=== PATIENT | female | born 2000 | race Caucasian/White ===

== ENCOUNTER 2022-01-14 06:49 | Emergency (ER) | payer OTHER ==
[2022-01-14 07:09] LABS: MUDS CUTOFF CONCENTRATIONS CUTOFF CONC BELOW:
[2022-01-14 07:16] LABS: HCG UR QUAL NEGATIVE
[2022-01-14 07:24] LABS: AMPHETAMINE SCREEN,URINE NEGATIVE (NEGATIVE); BARBITURATE SCREEN,UR NEGATIVE (NEGATIVE); BENZODIAZEPINES SCREEN, URINE NEGATIVE (NEGATIVE); COCAINE SCREEN URINE NEGATIVE (NEGATIVE); METHADONE SCREEN, URINE NEGATIVE (NEGATIVE); METHAMPHETAMINES SCREEN, URINE NEGATIVE (NEGATIVE); OPIATE SCREEN, URINE NEGATIVE (NEGATIVE); OXYCODONE SCREEN, URINE NEGATIVE (NEGATIVE); PROPOXYPHENE SCREEN, URINE NEGATIVE (NEGATIVE); THC CANNABINOID SCREEN, URINE NEGATIVE (NEGATIVE); TRICYCLIC ANTIDEPRESSANT,URINE NEGATIVE (NEGATIVE)
[2022-01-14 07:29] LABS: BILIRUBIN,URINE NEGATIVE (NEGATIVE); GLUCOSE, URINE (UA) NEGATIVE (NEGATIVE); KETONES,URINE (UA) NEGATIVE (NEGATIVE); LEUKOCYTE ESTERASE, URINE NEGATIVE (NEGATIVE); NITRITE,URINE NEGATIVE (NEGATIVE); OCCULT BLOOD,URINE NEGATIVE (NEGATIVE); PROTEIN,URINE NEGATIVE (NEGATIVE); UROBILINOGEN,URINE 0.2 (NORMAL) E.U./dL (NORMAL)
[2022-01-14 07:30] LABS: CLARITY,URINE CLEAR (CLEAR)
[2022-01-14 07:39] LABS: BASOPHILS # (AUTO) 0.1 10^3/uL (0.0-0.1); BASOPHILS % (AUTO) 1.4 %; EOSINOPHILS # (AUTO) 0.2 10^3/uL (0.0-0.7); EOSINOPHILS % (AUTO) 2.7 %; HCT - HEMATOCRIT 45.1 % (37.0-47.0); HGB - HEMOGLOBIN 15.1 g/dL (12.0-16.0); LYMPHOCYTES # (AUTO) 2.1 10^3/uL (1.5-3.5); LYMPHOCYTES % (AUTO) 35.2 %; MEAN CORPUSCULAR HEMOGLOBIN 30.6 pg (27.0-31.0); MEAN CORPUSCULAR HGB CONC 33.5 g/dL (32.0-36.0); MEAN CORPUSCULAR VOLUME 91.5 fL (81.0-99.0); MEAN PLATELET VOLUME 10.2 fL (7.9-10.8); MONOCYTES # (AUTO) 0.7 10^3/uL (0.0-1.0); MONOCYTES % (AUTO) 12.3 %; NEUTROPHILS # (AUTO) 2.8 10^3/uL (1.5-6.6); NEUTROPHILS % (AUTO) 48.2 %; PLT - PLATELET COUNT 287 10^3/uL (130-450); RED BLOOD COUNT 4.93 10^6/uL (4.20-5.40); WHITE BLOOD COUNT 5.9 x10^3/uL (4.8-10.8)
--- NOTE | 2022-01-14 07:56 | ED Physician Documentation ---
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 Patient reports this has been ongoing for some time. She is currently on Zoloft.She has thoughts of crashing her car. She has been drinking and believes she has had half 1/5 last night.She reports a history of a suicide attempt while she was deployed in [place] where she drank alcohol and then tried to jump out of a window but was stopped by someone else. She reports being hospitalized in [place] for 1 week but denies that it was for psychiatric reasons and that it was for her alcohol use.She reports feeling worse last night and reached out to a friend at her command to bring her to the emergency department. She denies drug use.She denies any specific recent events worsening her symptoms. Review of Systems Constitutional: denies: Fever Cardiac: denies: Chest pain / pressure Respiratory: denies: Dyspnea GI: denies: Abdominal Pain, Vomiting : denies: Dysuria Musculoskeletal: denies: Back pain Neurologic: denies: Headache Psychiatric: reports: Depressed, Suicidal PD PAST MEDICAL HISTORY - Past Medical History Past Medical History: Yes Cardiovascular: None Respiratory: None Neuro: None Endocrine/Autoimmune: None GI: None PARKING LOT SIGNALER: None : None HEENT: None Psych: Depression Musculoskeletal: None Derm: None - Past Surgical History Past Surgical History: No - Present Medications Home Medications: Ambulatory Orders Medication Instructions Recorded Confirmed Sertraline [Zoloft] 50 mg PO DAILY 10/11/21 01/14/22 - Allergies Allergies/Adverse Reactions: Allergies Allergy/AdvReac Type Severity Reaction Status Date / Time No Known Drug Allergies Allergy Verified 01/14/22 07:06 - Social History Does the pt smoke?: No Smoking Status: Never smoker Does the pt drink ETOH?: No Does the pt have substance abuse?: No - Immunizations Immunizations are current?: Yes - POLST Patient has POLST: No PD ED PE NORMAL - General General: Alert and oriented X 3, No acute distress, Well developed/nourished - HEENT HEENT: Atraumatic, PERRL - Cardiac Cardiac: RRR, Strong equal pulses - Respiratory Respiratory: No respiratory distress, Clear bilaterally - Abdomen Abdomen: Soft, Non tender - Derm Derm: Warm and dry - Extremities Extremities: No edema - Neuro Neuro: Normal speech - Psych Psych: Other (Tearful, soft-spoken) Results - Vitals Vitals: Vital Signs - 24 hr 01/14/22 01/14/22 07:02 13:44 Temperature 37.4 C 37.3 C Heart Rate 112 H 109 H Respiratory 16 18 Rate Blood Pressure 135/78 H 117/65 O2 Saturation 98 100 Oxygen O2 Source Room air - Labs Labs: Laboratory Tests 01/14/22 01/14/22 01/14/22 07:00 07:00 07:00 WBC RBC Hgb Hct MCV MCH MCHC RDW Plt Count MPV Neut # (Auto) Lymph # (Auto) [place] # (Auto) Eos # (Auto) Baso # (Auto) Absolute Nucleated RBC Nucleated RBC % Sodium Potassium Chloride Carbon Dioxide Anion Gap BUN Creatinine Estimated GFR (MDRD) Glucose Calcium Total Bilirubin AST ALT Alkaline Phosphatase Total Protein Albumin Globulin Albumin/Globulin Ratio Lipase TSH Urine Color LT. YELLOW Urine Clarity CLEAR Urine pH 6.0 Ur Specific [place] <=1.005 Urine Protein NEGATIVE Urine Glucose (UA) NEGATIVE Urine Ketones NEGATIVE Urine Occult Blood NEGATIVE Urine Nitrite NEGATIVE Urine Bilirubin NEGATIVE Urine Urobilinogen 0.2 (NORMAL) Ur Leukocyte Esterase NEGATIVE Ur Microscopic Review NOT INDICATED Urine Culture Comments NOT INDICATED Urine HCG, Qual NEGATIVE Salicylates Urine Opiates Screen NEGATIVE Ur Oxycodone Screen NEGATIVE Urine Methadone Screen NEGATIVE Ur Propoxyphene Screen NEGATIVE Acetaminophen Ur Barbiturates Screen NEGATIVE Ur Tricyclics Screen NEGATIVE Ur Phencyclidine Scrn NEGATIVE Ur Amphetamine Screen NEGATIVE U Methamphetamines Scrn NEGATIVE U Benzodiazepines Scrn NEGATIVE Urine Cocaine Screen NEGATIVE U Cannabinoids Screen NEGATIVE Ethyl Alcohol SARS-CoV-2 (PCR) 01/14/22 01/14/22 01/14/22 07:34 07:34 07:34 WBC 5.9 RBC 4.93 Hgb 15.1 Hct 45.1 MCV 91.5 MCH 30.6 MCHC 33.5 RDW 12.0 Plt Count 287 MPV 10.2 Neut # (Auto) 2.8 Lymph # (Auto) 2.1 [place] # (Auto) 0.7 Eos # (Auto) 0.2 Baso # (Auto) 0.1 Absolute Nucleated RBC 0.00 Nucleated RBC % 0.0 Sodium 141 Potassium 3.9 Chloride 107 Carbon Dioxide 23 Anion Gap 11.0 BUN 8 Creatinine 0.5 Estimated GFR (MDRD) 154 Glucose 118 H Calcium 9.5 Total Bilirubin 0.5 AST 18 ALT 15 Alkaline Phosphatase 77 Total Protein 7.7 Albumin 4.4 Globulin 3.3 Albumin/Globulin Ratio 1.3 Lipase 26 TSH 3.03 Urine Color Urine Clarity Urine pH Ur Specific [place] Urine Protein Urine Glucose (UA) Urine Ketones Urine Occult Blood Urine Nitrite Urine Bilirubin Urine Urobilinogen Ur Leukocyte Esterase Ur Microscopic Review Urine Culture Comments Urine HCG, Qual Salicylates < 6.0 Urine Opiates Screen Ur Oxycodone Screen Urine Methadone Screen Ur Propoxyphene Screen Acetaminophen < 10 L Ur Barbiturates Screen Ur Tricyclics Screen Ur Phencyclidine Scrn Ur Amphetamine Screen U Methamphetamines Scrn U Benzodiazepines Scrn Urine Cocaine Screen U Cannabinoids Screen Ethyl Alcohol 252.2 SARS-CoV-2 (PCR) 01/14/22 01/14/22 08:30 14:59 WBC RBC Hgb Hct MCV MCH MCHC RDW Plt Count MPV Neut # (Auto) Lymph # (Auto) [place] # (Auto) Eos # (Auto) Baso # (Auto) Absolute Nucleated RBC Nucleated RBC % Sodium Potassium Chloride Carbon Dioxide Anion Gap BUN Creatinine Estimated GFR (MDRD) Glucose Calcium Total Bilirubin AST ALT Alkaline Phosphatase Total Protein Albumin Globulin Albumin/Globulin Ratio Lipase TSH Urine Color Urine Clarity Urine pH Ur Specific [place] Urine Protein Urine Glucose (UA) Urine Ketones Urine Occult Blood Urine Nitrite Urine Bilirubin Urine Urobilinogen Ur Leukocyte Esterase Ur Microscopic Review Urine Culture Comments Urine HCG, Qual Salicylates Urine Opiates Screen Ur Oxycodone Screen Urine Methadone Screen Ur Propoxyphene Screen Acetaminophen Ur Barbiturates Screen Ur Tricyclics Screen Ur Phencyclidine Scrn Ur Amphetamine Screen U Methamphetamines Scrn U Benzodiazepines Scrn Urine Cocaine Screen U Cannabinoids Screen Ethyl Alcohol 84.1 SARS-CoV-2 (PCR) DETECTED A PD MEDICAL DECISION MAKING - ED course Complexity details: reviewed results, re-evaluated patient, d/w patient ED course: Patient presenting for evaluation of suicidal thoughts with plan to crash her car. She is found to be intoxicated. She is also found to be positive for COVID. Reports having fevers and cough since Wednesday.Patient was allowed to metabolize And once sober still remained Feeling suicidal and depressed with having thoughts of harming herself.She was seen by social work and as she is active duty, [facility] has been contacted to evaluate her. Patient has been accepted to [facility]. As she is COVID-positive she will be transported by ambulance. Patient is aware of disposition. She did give me permission to speak to her flight surgeon, Dr. Black, when he called requesting information about her. Departure - Departure Disposition: 65 Psych Hosp/Unit DC/Xfer Clinical Impression: Suicidal thoughts, Alcohol intoxication, COVID-19 Condition: Stable
[2022-01-14 07:59] LABS: ACETAMINOPHEN < 10 ug/mL (10-30); ALBUMIN 4.4 g/dL (3.2-5.5); ALBUMIN/GLOBULIN RATIO 1.3 (1.0-2.2); ALKALINE PHOSPHATASE 77 IU/L (42-121); ALT ALANINE AMINOTRANSFERASE 15 IU/L (10-60); AST ASPARTATE AMINOTRANSFERASE 18 IU/L (10-42); BILIRUBIN,TOTAL 0.5 mg/dL (0.2-1.0); BUN - BLOOD UREA NITROGEN 8 mg/dL (6-20); CALCIUM 9.5 mg/dL (8.5-10.3); CARBON DIOXIDE - CO2 23 mmol/L (21-32); CHLORIDE 107 mmol/L (101-111); CREATININE 0.5 mg/dL (0.4-1.0); ETOH - ETHANOL 252.2 mg/dL; GFR - MDRD 154 (>89); GLUCOSE 118 mg/dL (70-100); LIPASE 26 U/L (22-51); POTASSIUM 3.9 mmol/L (3.5-5.0); SALICYLATE < 6.0 mg/dL; SODIUM 141 mmol/L (135-145); TOTAL PROTEIN 7.7 g/dL (6.7-8.2)
[2022-01-14 13:45] VITALS: BP 117/65
[2022-01-14] MEDS ORDERED: ACETAMINOPHEN 325 MG TABLET PO STA (18:12)
== END 2022-01-14 19:51 ==
LOC: ED 06:49
DX: F32.A Depression, unspecified (principal); U07.1 COVID-19; R45.851 Suicidal ideations; F10.129 Alcohol abuse with intoxication, unspecified; Z91.51 Personal history of suicidal behavior; Y90.8 Blood alcohol level of 240 mg/100 ml or more
CPT/HCPCS: 36415; 80053; 80306; 80307; 80320; 80329; 81003; 81025; 83690; 84443; 85025; 87635; 99283; 99285; A9270; 81001; 87086

== ENCOUNTER 2023-01-10 17:08 | Emergency (ER) | payer OTHER ==
[2023-01-10 17:53] LABS: BASOPHILS # (AUTO) 0.1 10^3/uL (0.0-0.1); EOSINOPHILS # (AUTO) 0.1 10^3/uL (0.0-0.7); EOSINOPHILS % (AUTO) 1.2 %; HCT - HEMATOCRIT 42.7 % (37.0-47.0); LYMPHOCYTES % (AUTO) 29.1 %; MEAN CORPUSCULAR HGB CONC 32.8 g/dL (32.0-36.0); MEAN CORPUSCULAR VOLUME 94.5 fL (81.0-99.0); MEAN PLATELET VOLUME 9.8 fL (7.9-10.8); MONOCYTES # (AUTO) 0.6 10^3/uL (0.0-1.0); MONOCYTES % (AUTO) 8.7 %; NEUTROPHILS # (AUTO) 4.1 10^3/uL (1.5-6.6); NEUTROPHILS % (AUTO) 59.7 %; PLT - PLATELET COUNT 362 10^3/uL (130-450); RED BLOOD COUNT 4.52 10^6/uL (4.20-5.40); RED CELL DISTRIBUTION WIDTH 12.5 % (12.0-15.0); WHITE BLOOD COUNT 6.9 x10^3/uL (4.8-10.8)
[2023-01-10 18:10] LABS: ACETAMINOPHEN 0.2 ug/mL; ALBUMIN 4.1 g/dL (3.2-5.5); ALBUMIN/GLOBULIN RATIO 1.4 (1.0-2.2); ALKALINE PHOSPHATASE 82 IU/L (42-121); ALT ALANINE AMINOTRANSFERASE 7 IU/L (10-60); AST ASPARTATE AMINOTRANSFERASE 13 IU/L (10-42); BILIRUBIN,TOTAL 0.7 mg/dL (0.2-1.0); BUN - BLOOD UREA NITROGEN 11 mg/dL (6-20); CALCIUM 8.8 mg/dL (8.5-10.3); CARBON DIOXIDE - CO2 27 mmol/L (21-32); CHLORIDE 109 mmol/L (101-111); CK- CREATINE KINASE 51 IU/L (30-223); CREATININE 0.6 mg/dL (0.6-1.3); GFR - MDRD 124 (>89); GLUCOSE 82 mg/dL (74-104); LIPASE 19 U/L (11-82); MAGNESIUM 1.6 mg/dL (1.7-2.3); POTASSIUM 3.4 mmol/L (3.5-4.5); SODIUM 143 mmol/L (135-145)
[2023-01-10 18:12] LABS: SALICYLATE < 1.5 mg/dL
--- NOTE | 2023-01-10 18:12 | ED Physician Documentation ---
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 She has a longstanding history of anxiety and depression and was previously on Prozac. She left for deployment in June and she stopped taking her Prozac in August. She returned from deployment on December 30. Since then she has been having thoughts of self-harm where she would [place]. She does not feel safe returning home and is requesting hospitalization for her thoughts. Patient states that she is planning to be discharged from the [facility] in June and stopped taking the Prozac because she was concerned about affording it when she was out of the [facility]. Patient had a similar presentation to this emergency department in January of last year at which time she was found to be clinically intoxicated with a blood alcohol of 255. Once she was sobered she was sent to [facility] again. Review of Systems Constitutional: denies: Fever Ears: reports: Reviewed and negative Cardiac: reports: Reviewed and negative Respiratory: reports: Reviewed and negative : reports: Reviewed and negative Psychiatric: reports: Depressed, Suicidal, Anxiety, Insomnia. denies: Homicidal, Hallucinations, Delusions PD PAST MEDICAL HISTORY - Past Medical History Past Medical History: Yes Cardiovascular: None Respiratory: None Neuro: None Endocrine/Autoimmune: None GI: None DIRECTOR HEMATOLOGY: None : None HEENT: None Psych: Depression, Anxiety, Panic attacks Musculoskeletal: None Derm: Psoriasis - Past Surgical History Past Surgical History: No - Present Medications Home Medications: Ambulatory Orders Medication Instructions Recorded Confirmed Fluoxetine HCl [Prozac] 80 mg PO DAILY 01/10/23 01/10/23 - Allergies Allergies/Adverse Reactions: Allergies Allergy/AdvReac Type Severity Reaction Status Date / Time No Known Drug Allergies Allergy Verified 01/10/23 17:22 - Social History Does the pt smoke?: No Smoking Status: Never smoker Does the pt drink ETOH?: No Does the pt have substance abuse?: No - Immunizations Immunizations are current?: Yes - POLST Patient has POLST: No PD ED PE NORMAL - General General: Alert and oriented X 3. No: No acute distress (Crying, anxious, tearful) - HEENT HEENT: PERRL - Cardiac Cardiac: RRR, No murmur - Respiratory Respiratory: Clear bilaterally - Neuro Neuro: Alert and oriented X 3, document manager 2-12 intact Eye Opening: Spontaneous Motor: Obeys Commands Verbal: Oriented GCS Score: 15 - Psych Psych: No: Normal mood (Depressed crying affect. Good eye contact. Reports thoughts of jumping [place]. Does not have a lot of forward thinking or future oriented thoughts) Results - Vitals Vitals: Vital Signs - 24 hr 01/10/23 17:23 Temperature 36.8 C Heart Rate 104 H Respiratory 16 Rate Blood Pressure 130/78 O2 Saturation 99 Oxygen O2 Source Room air - Labs Labs: Laboratory Tests 01/10/23 01/10/23 01/10/23 17:39 17:47 17:47 WBC 6.9 RBC 4.52 Hgb 14.0 Hct 42.7 MCV 94.5 MCH 31.0 MCHC 32.8 RDW 12.5 Plt Count 362 MPV 9.8 Neut # (Auto) 4.1 Lymph # (Auto) 2.0 [place] # (Auto) 0.6 Eos # (Auto) 0.1 Baso # (Auto) 0.1 Absolute Nucleated RBC 0.00 Nucleated RBC % 0.0 Sodium 143 Potassium 3.4 L Chloride 109 Carbon Dioxide 27 Anion Gap 7.0 BUN 11 Creatinine 0.6 Estimated GFR (MDRD) 124 Glucose 82 Calcium 8.8 Magnesium 1.6 L Total Bilirubin 0.7 AST 13 ALT 7 L Alkaline Phosphatase 82 Total Creatine Kinase 51 Total Protein 7.0 Albumin 4.1 Globulin 2.9 Albumin/Globulin Ratio 1.4 Lipase 19 TSH 0.86 Urine Color Urine Clarity Urine pH Ur Specific [place] Urine Protein Urine Glucose (UA) Urine Ketones Urine Occult Blood Urine Nitrite Urine Bilirubin Urine Urobilinogen Ur Leukocyte Esterase Urine RBC Urine WBC Ur Squamous Epith Cells Amorphous Sediment Urine Bacteria Urine Mucus Ur Microscopic Review Urine Culture Comments Urine HCG, Qual Salicylates < 1.5 Urine Opiates Screen Ur Oxycodone Screen Urine Methadone Screen Ur Propoxyphene Screen Acetaminophen 0.2 Ur Barbiturates Screen Ur Tricyclics Screen Ur Phencyclidine Scrn Ur Amphetamine Screen U Methamphetamines Scrn U Benzodiazepines Scrn Urine Cocaine Screen U Cannabinoids Screen Ethyl Alcohol 228.0 SARS-CoV-2 (PCR) NOT DETECTED 01/10/23 01/10/23 18:30 18:30 WBC RBC Hgb Hct MCV MCH MCHC RDW Plt Count MPV Neut # (Auto) Lymph # (Auto) [place] # (Auto) Eos # (Auto) Baso # (Auto) Absolute Nucleated RBC Nucleated RBC % Sodium Potassium Chloride Carbon Dioxide Anion Gap BUN Creatinine Estimated GFR (MDRD) Glucose Calcium Magnesium Total Bilirubin AST ALT Alkaline Phosphatase Total Creatine Kinase Total Protein Albumin Globulin Albumin/Globulin Ratio Lipase TSH Urine Color YELLOW Urine Clarity SL. CLOUDY Urine pH 6.0 Ur Specific [place] 1.025 Urine Protein NEGATIVE Urine Glucose (UA) NEGATIVE Urine Ketones TRACE Urine Occult Blood NEGATIVE Urine Nitrite NEGATIVE Urine Bilirubin NEGATIVE Urine Urobilinogen 1 (NORMAL) Ur Leukocyte Esterase LARGE H Urine RBC 0-5 Urine WBC 11-25 H Ur Squamous Epith Cells MANY Squamous H Amorphous Sediment Moderate Urine Bacteria Moderate H Urine Mucus Marked Strands Ur Microscopic Review INDICATED Urine Culture Comments NOT INDICATED Urine HCG, Qual NEGATIVE Salicylates Urine Opiates Screen NEGATIVE Ur Oxycodone Screen NEGATIVE Urine Methadone Screen NEGATIVE Ur Propoxyphene Screen NEGATIVE Acetaminophen Ur Barbiturates Screen NEGATIVE Ur Tricyclics Screen NEGATIVE Ur Phencyclidine Scrn NEGATIVE Ur Amphetamine Screen NEGATIVE U Methamphetamines Scrn NEGATIVE U Benzodiazepines Scrn NEGATIVE Urine Cocaine Screen NEGATIVE U Cannabinoids Screen NEGATIVE Ethyl Alcohol SARS-CoV-2 (PCR) PD Medical Decision Making - ED course Complexity details: reviewed results, re-evaluated patient, considered differential, d/w patient ED course: 22-year-old female presents to the emergency department for evaluation of suicidal ideation. She does not feel safe going home and is requesting hospitalization. Had a similar presentation in January of last year. Patient admits to drinking heavily last night as well as a little bit this morning. On presentation in the emergency department she was tearful and requesting hospitalization. Reported a plan to [place]. Routine mental health labs were obtained which included an alcohol level quite elevated at 228. Initially we did speak with [facility] again before the full labs had been obtained and she was excepted there for further evaluation and management of her SI and depression however they were requesting repeat alcohol to be less than 100 before they could formally excepted. As such the patient will continue to board in the emergency department with a repeat alcohol level pending for about 230 this morning. Once less than 100, patient should be reevaluated and if continues to have thoughts of SI she can continue with placement at [facility]. Urinalysis does suggest infection though patient is without symptoms. Therefore will defer treatment of asymptomatic bacteriuria. Patient will be signed out to my nighttime colleague to follow-up on alcohol results and reassessment Departure - Departure Clinical Impression: Suicidal ideation Alcohol intoxication Qualifiers: Complication of substance-induced condition: uncomplicated Qualified Code(s): F10.920 - Alcohol use, unspecified with intoxication, uncomplicated Forms: PCP List
[2023-01-10 18:22] LABS: THYROID STIMULATING HORMONE 0.86 uIU/mL (0.34-5.60)
[2023-01-10 18:51] LABS: MUDS CUTOFF CONCENTRATIONS CUTOFF CONC BELOW:
[2023-01-10 18:55] LABS: BILIRUBIN,URINE NEGATIVE (NEGATIVE); GLUCOSE, URINE (UA) NEGATIVE (NEGATIVE); KETONES,URINE (UA) TRACE mg/dL (NEGATIVE); LEUKOCYTE ESTERASE, URINE LARGE (NEGATIVE); NITRITE,URINE NEGATIVE (NEGATIVE); OCCULT BLOOD,URINE NEGATIVE (NEGATIVE); PROTEIN,URINE NEGATIVE (NEGATIVE); UROBILINOGEN,URINE 1 (NORMAL) E.U./dL (NORMAL)
[2023-01-10 19:01] LABS: AMORPHOUS SEDIMENT,UR Moderate /LPF; BACTERIA,URINE Moderate /HPF (None Seen); CLARITY,URINE SL. CLOUDY (CLEAR); HCG UR QUAL NEGATIVE; MUCUS,URINE Marked Strands; RBC,URINE 0-5 /HPF (0-5); SQUAMOUS EPITHELIAL CELL,UR MANY Squamous (<= Few)
[2023-01-10 19:03] LABS: AMPHETAMINE SCREEN,URINE NEGATIVE (NEGATIVE); BARBITURATE SCREEN,UR NEGATIVE (NEGATIVE); BENZODIAZEPINES SCREEN, URINE NEGATIVE (NEGATIVE); COCAINE SCREEN URINE NEGATIVE (NEGATIVE); METHADONE SCREEN, URINE NEGATIVE (NEGATIVE); METHAMPHETAMINES SCREEN, URINE NEGATIVE (NEGATIVE); OPIATE SCREEN, URINE NEGATIVE (NEGATIVE); OXYCODONE SCREEN, URINE NEGATIVE (NEGATIVE); PROPOXYPHENE SCREEN, URINE NEGATIVE (NEGATIVE); THC CANNABINOID SCREEN, URINE NEGATIVE (NEGATIVE); TRICYCLIC ANTIDEPRESSANT,URINE NEGATIVE (NEGATIVE)
--- NOTE | 2023-01-11 07:32 | ED Physician Documentation ---
ED Addendum - Addendum Addendum: 01/11/23 07:31 Patient signed out to me by overnight physician. Patient was found to be depressed, suicidal. Last night was wanting treatment but also found to have an elevated EtOH level. Was allowed to sober overnight. Patient is medically cleared. [facility] has tentatively accepted her although we are still waiting for a doctor to doctor phone call. This morning I went to evaluate the patient and she states she feels a little bit better and is unsure if she wants to get treatment. She states that if that is what we recommend and she would not argue with that but she also may prefer to be at home where her phone and bed are. She denies being concerned about alcohol use and states that she has not had a drink in 7 months. When I discussed her elevated level when she came in she states she is not sure why that was so high as she had not had a drink yesterday but had had alcohol the day prior.I have placed a social work consult To help in determining her disposition. 01/11/23 10:18 Social work has evaluated the patient. The patient is not wanting to be admitted to an inpatient facility at this time. She is contracted for safety. Please see social jeramy Mcfadden, evaluation for further details. Departure - Departure Disposition: 01 Home, Self Care Clinical Impression: Depression Alcohol intoxication Qualifiers: Complication of substance-induced condition: uncomplicated Qualified Code(s): F10.920 - Alcohol use, unspecified with intoxication, uncomplicated Condition: Stable Instructions: ED Alcohol Intoxication, ED Depression Follow-Up: [facility] [Provider Group] Prescriptions: LORazepam [Ativan] 1 mg PO TID PRN #6 tablet PRN Reason: Anxiety Comments: You were found to have an elevated level of alcohol in your system when you first presented to the emergency department. After allowing the alcohol to clear from your system we reevaluated you and at this time you are wanting to go home and feel that you will be safe at home. Please utilize the resources given to you by your command as well as by Lesa our 7th grade social studies teacher to help you through your current situation. Please follow-up with your primary care provider and mental health clinic at the [facility]. I have sent a small prescription for antianxiety medication to [facility] in [place]. Please use this sparingly and only as needed. Ab solutely do not mix this with alcohol. If at anytime you were feeling worse then please return to the emergency department or call 911. Suicide Hotline 986 Follow-up with [facility] at [phone] to schedule psychiatric care and counseling. Forms: PCP List
[2023-01-11] MEDS ORDERED: LORazepam 1 MG TABLET PO STA (09:02)
[2023-01-11 11:42] VITALS: BP 128/85; O2SAT 100
== END 2023-01-11 11:39 | disposition home or self-care (01) ==
LOC: ED 17:08
DX: R45.851 Suicidal ideations (principal); F10.129 Alcohol abuse with intoxication, unspecified; Y90.7 Blood alcohol level of 200-239 mg/100 ml; F41.9 Anxiety disorder, unspecified; F32.A Depression, unspecified; Z20.822 Contact with and (suspected) exposure to COVID-19; Z79.899 Other long term (current) drug therapy
CPT/HCPCS: 36415; 80053; 80306; 80307; 80320; 80329; 81001; 81025; 82550; 83690; 83735; 84443; 85025; 87635; 99283; J8499; 81003; 87086

== ENCOUNTER 2023-01-17 21:52 | Outpatient (CLI) | payer OTHER | END 2023-01-17 21:53 | disposition critical access hospital (66) | LOC: EMS 21:52 | DX: Z04.6 Encounter for general psychiatric examination, requested by authority (principal); R45.851 Suicidal ideations; F10.129 Alcohol abuse with intoxication, unspecified | CPT/HCPCS: A0425; A0429 ==

== ENCOUNTER 2023-01-17 22:11 | Emergency (ER) | payer OTHER ==
--- NOTE | 2023-01-17 22:45 | ED Physician Documentation ---
PD HPI MHE - Stated complaint Stated Complaint: MHE - Chief complaint Chief Complaint: MHE - History obtained from History obtained from: Patient, EMS - History of Present Illness Primary symptom: Suicidal ideation, Depression (ongoing depression and has had episodic suicidal ideation (had epidose a week ago when intoxicatd of ideation of going [place]). No attempts have been made. She called her friend this evening that she was wanting to hurt herself. Friend called command and police, who found pt at home.). No: Suicide attempt Timing - onset: Today Contributing factors: Off meds Similar symptoms before: Diagnosis (here in ER a week ago and year ago with similar presentation of suicidal ideation and intoxication.) Recently seen: Emergency Dept Review of Systems Unable to obtain: Intoxicated, Other (reluctant to talk but answered questions sluggishly with head nodding.) Cardiac: denies: Chest pain / pressure GI: denies: Abdominal Pain Neurologic: denies: Headache, Head injury PD PAST MEDICAL HISTORY - Past Medical History Cardiovascular: None Respiratory: None Neuro: None Endocrine/Autoimmune: None GI: None RN DIABETES EDUCATOR: None : None HEENT: None Psych: Depression, Anxiety, Panic attacks Musculoskeletal: None Derm: Psoriasis - Past Surgical History Past Surgical History: No - Present Medications Home Medications: Ambulatory Orders Medication Instructions Recorded Confirmed Fluoxetine HCl [Prozac] 80 mg PO DAILY 01/10/23 01/17/23 LORazepam [Ativan] 1 mg PO TID PRN #6 tablet 01/11/23 01/17/23 - Allergies Allergies/Adverse Reactions: Allergies Allergy/AdvReac Type Severity Reaction Status Date / Time No Known Drug Allergies Allergy Verified 01/10/23 17:22 - Social History Does the pt smoke?: No Smoking Status: Never smoker Does the pt drink ETOH?: No Does the pt have substance abuse?: No - Immunizations Immunizations are current?: Yes - POLST Patient has POLST: No PD ED PE NORMAL - Vitals Vital signs reviewed: Yes - General General: No acute distress, Well developed/nourished, Other (reluctant to intera ct and wanting to stay under blanket. ) - HEENT HEENT: Atraumatic - Cardiac Cardiac: RRR, No murmur - Respiratory Respiratory: Clear bilaterally - Abdomen Abdomen: Soft, Non tender - Derm Derm: Normal color, Warm and dry - Extremities Extremities: No tenderness to palpate Results - Vitals Vitals: Vital Signs - 24 hr 01/17/23 01/18/23 22:25 02:00 Temperature 36.8 C 36.8 C Heart Rate 90 88 Respiratory 20 16 Rate Blood Pressure 121/73 116/75 O2 Saturation 98 97 Oxygen O2 Source Room air - Labs Labs: Laboratory Tests 01/17/23 01/17/23 01/17/23 23:15 23:15 23:51 WBC 6.2 RBC 4.48 Hgb 13.7 Hct 42.4 MCV 94.6 MCH 30.6 MCHC 32.3 RDW 12.6 Plt Count 333 MPV 9.7 Neut # (Auto) 3.5 Lymph # (Auto) 2.1 [place] # (Auto) 0.4 Eos # (Auto) 0.1 Baso # (Auto) 0.1 Absolute Nucleated RBC 0.00 Nucleated RBC % 0.0 Sodium 142 Potassium 3.8 Chloride 109 Carbon Dioxide 23 Anion Gap 10.0 BUN 14 Creatinine 0.7 Estimated GFR (MDRD) 104 Glucose 97 Calcium 8.2 L Magnesium 1.7 Total Bilirubin 0.5 AST 13 ALT 5 L Alkaline Phosphatase 89 Total Creatine Kinase 41 Total Protein 6.2 L Albumin 3.9 Globulin 2.3 Albumin/Globulin Ratio 1.7 Lipase 13 TSH 1.17 Urine Color YELLOW Urine Clarity CLEAR Urine pH 6.0 Ur Specific [place] 1.020 Urine Protein NEGATIVE Urine Glucose (UA) NEGATIVE Urine Ketones NEGATIVE Urine Occult Blood TRACE-INTA Urine Nitrite NEGATIVE Urine Bilirubin NEGATIVE Urine Urobilinogen 0.2 (NORMAL) Ur Leukocyte Esterase NEGATIVE Ur Microscopic Review NOT INDICATED Urine Culture Comments NOT INDICATED Urine HCG, Qual NEGATIVE Salicylates < 1.5 Urine Opiates Screen NEGATIVE Ur Oxycodone Screen NEGATIVE Urine Methadone Screen NEGATIVE Ur Propoxyphene Screen NEGATIVE Acetaminophen 0.3 Ur Barbiturates Screen NEGATIVE Ur Tricyclics Screen NEGATIVE Ur Phencyclidine Scrn NEGATIVE Ur Amphetamine Screen NEGATIVE U Methamphetamines Scrn NEGATIVE U Benzodiazepines Scrn NEGATIVE Urine Cocaine Screen NEGATIVE U Cannabinoids Screen NEGATIVE Ethyl Alcohol 323.8 01/18/23 06:02 WBC RBC Hgb Hct MCV MCH MCHC RDW Plt Count MPV Neut # (Auto) Lymph # (Auto) [place] # (Auto) Eos # (Auto) Baso # (Auto) Absolute Nucleated RBC Nucleated RBC % Sodium Potassium Chloride Carbon Dioxide Anion Gap BUN Creatinine Estimated GFR (MDRD) Glucose Calcium Magnesium Total Bilirubin AST ALT Alkaline Phosphatase Total Creatine Kinase Total Protein Albumin Globulin Albumin/Globulin Ratio Lipase TSH Urine Color Urine Clarity Urine pH Ur Specific [place] Urine Protein Urine Glucose (UA) Urine Ketones Urine Occult Blood Urine Nitrite Urine Bilirubin Urine Urobilinogen Ur Leukocyte Esterase Ur Microscopic Review Urine Culture Comments Urine HCG, Qual Salicylates Urine Opiates Screen Ur Oxycodone Screen Urine Methadone Screen Ur Propoxyphene Screen Acetaminophen Ur Barbiturates Screen Ur Tricyclics Screen Ur Phencyclidine Scrn Ur Amphetamine Screen U Methamphetamines Scrn U Benzodiazepines Scrn Urine Cocaine Screen U Cannabinoids Screen Ethyl Alcohol 192.4 PD Medical Decision Making - ED course Complexity details: reviewed results (BA elevated at 323. Will need estimated 10 hours for metabolism to level below 80 for evaluation. Can reassess BA in about 7-8 hours to get more exact estimate. ), considered differential (apparently intoxicated and having suicidal ideation without attempt/gesture. ), d/w patient ED course: The patient slept well soon after labs drawn etc. No complications overnight. She was up to the bathroom earlier this morning without any notable ataxia. Her recheck blood alcohol at 6 AM however was still 192. I had anticipated it not being below 80 as yet but this is a little higher than expected so presumption was she was still absorbing some on the initial draw. Anticipate another 4 hours before being at the 80 level. She will want a social work evaluation for safety planning and/or discussion of treatment. Care is given over to the oncoming daytime physician. I repeat blood alcohol level was ordered for 10 AM. Departure - Departure Clinical Impression: Depression, Alcohol intoxication, Suicidal ideation Condition: Stable Record reviewed to determine appropriate education?: Yes Forms: PCP List
[2023-01-17 23:20] LABS: BASOPHILS # (AUTO) 0.1 10^3/uL (0.0-0.1); BASOPHILS % (AUTO) 1.1 %; EOSINOPHILS # (AUTO) 0.1 10^3/uL (0.0-0.7); HCT - HEMATOCRIT 42.4 % (37.0-47.0); HGB - HEMOGLOBIN 13.7 g/dL (12.0-16.0); LYMPHOCYTES # (AUTO) 2.1 10^3/uL (1.5-3.5); LYMPHOCYTES % (AUTO) 34.3 %; MEAN CORPUSCULAR HEMOGLOBIN 30.6 pg (27.0-31.0); MEAN CORPUSCULAR HGB CONC 32.3 g/dL (32.0-36.0); MEAN CORPUSCULAR VOLUME 94.6 fL (81.0-99.0); MEAN PLATELET VOLUME 9.7 fL (7.9-10.8); MONOCYTES # (AUTO) 0.4 10^3/uL (0.0-1.0); NEUTROPHILS # (AUTO) 3.5 10^3/uL (1.5-6.6); NEUTROPHILS % (AUTO) 56.4 %; PLT - PLATELET COUNT 333 10^3/uL (130-450); RED BLOOD COUNT 4.48 10^6/uL (4.20-5.40); RED CELL DISTRIBUTION WIDTH 12.6 % (12.0-15.0); WHITE BLOOD COUNT 6.2 x10^3/uL (4.8-10.8)
[2023-01-17 23:51] LABS: THYROID STIMULATING HORMONE 1.17 uIU/mL (0.34-5.60)
[2023-01-17 23:56] LABS: MUDS CUTOFF CONCENTRATIONS CUTOFF CONC BELOW:
[2023-01-17 23:57] LABS: ACETAMINOPHEN 0.3 ug/mL; ALBUMIN 3.9 g/dL (3.2-5.5); ALBUMIN/GLOBULIN RATIO 1.7 (1.0-2.2); ALKALINE PHOSPHATASE 89 IU/L (42-121); ALT ALANINE AMINOTRANSFERASE 5 IU/L (10-60); AST ASPARTATE AMINOTRANSFERASE 13 IU/L (10-42); BILIRUBIN,TOTAL 0.5 mg/dL (0.2-1.0); BUN - BLOOD UREA NITROGEN 14 mg/dL (6-20); CALCIUM 8.2 mg/dL (8.5-10.3); CARBON DIOXIDE - CO2 23 mmol/L (21-32); CHLORIDE 109 mmol/L (101-111); CK- CREATINE KINASE 41 IU/L (30-223); CREATININE 0.7 mg/dL (0.6-1.3); ETOH - ETHANOL 323.8 mg/dL; GFR - MDRD 104 (>89); GLUCOSE 97 mg/dL (74-104); LIPASE 13 U/L (11-82); MAGNESIUM 1.7 mg/dL (1.7-2.3); POTASSIUM 3.8 mmol/L (3.5-4.5); SODIUM 142 mmol/L (135-145); TOTAL PROTEIN 6.2 g/dL (6.4-8.9)
[2023-01-17 23:59] LABS: BILIRUBIN,URINE NEGATIVE (NEGATIVE); GLUCOSE, URINE (UA) NEGATIVE (NEGATIVE); KETONES,URINE (UA) NEGATIVE (NEGATIVE); LEUKOCYTE ESTERASE, URINE NEGATIVE (NEGATIVE); NITRITE,URINE NEGATIVE (NEGATIVE); OCCULT BLOOD,URINE TRACE-INTA (NEGATIVE); PROTEIN,URINE NEGATIVE (NEGATIVE); UROBILINOGEN,URINE 0.2 (NORMAL) E.U./dL (NORMAL)
[2023-01-18] LABS: CLARITY,URINE CLEAR (CLEAR); HCG UR QUAL NEGATIVE
[2023-01-18 00:01] LABS: SALICYLATE < 1.5 mg/dL
[2023-01-18 00:08] LABS: AMPHETAMINE SCREEN,URINE NEGATIVE (NEGATIVE); BARBITURATE SCREEN,UR NEGATIVE (NEGATIVE); BENZODIAZEPINES SCREEN, URINE NEGATIVE (NEGATIVE); COCAINE SCREEN URINE NEGATIVE (NEGATIVE); METHADONE SCREEN, URINE NEGATIVE (NEGATIVE); METHAMPHETAMINES SCREEN, URINE NEGATIVE (NEGATIVE); OPIATE SCREEN, URINE NEGATIVE (NEGATIVE); OXYCODONE SCREEN, URINE NEGATIVE (NEGATIVE); PROPOXYPHENE SCREEN, URINE NEGATIVE (NEGATIVE); THC CANNABINOID SCREEN, URINE NEGATIVE (NEGATIVE); TRICYCLIC ANTIDEPRESSANT,URINE NEGATIVE (NEGATIVE)
[2023-01-18 12:45] VITALS: BP 121/66; O2SAT 96
--- NOTE | 2023-01-18 13:18 | ED Physician Documentation ---
ED Addendum - Addendum Addendum: 01/18/23 13:17 Patient observed overnight without incident. Alcohol level trending downwards. Seen and evaluated by social work, recommending inpatient. Labs reviewed. Patient is medically cleared for inpatient psychiatric services.
== END 2023-01-18 16:13 ==
LOC: EDUNIT# → EDBD → ED 22:11
DX: R45.851 Suicidal ideations (principal); F10.129 Alcohol abuse with intoxication, unspecified; Y90.8 Blood alcohol level of 240 mg/100 ml or more; F32.A Depression, unspecified; Z20.822 Contact with and (suspected) exposure to COVID-19; Z79.899 Other long term (current) drug therapy
CPT/HCPCS: 36415; 80053; 80306; 80307; 80320; 80329; 81001; 81003; 81025; 82550; 83690; 83735; 84443; 85025; 87086; 87635; 99283; 99285